=== PATIENT | female | born 1990 | race African-American/Black ===

== ENCOUNTER 2020-03-16 12:00 | Inpatient (IN) | payer BC, SELFPAY ==
[2020-03-16] MEDS ORDERED: Misoprostol 200 MCG TAB PR PRN (12:24)
[2020-03-16] MEDS ORDERED: Ibuprofen 800 MG TAB PO PRN (12:24)
[2020-03-16] MEDS ORDERED: Methylergonovine 0.2 MG/ML VIAL IM PRN (12:24)
[2020-03-16] MEDS ORDERED: HYDROcodone/Acetaminophen 5/325 mg Tablet PO PRN ×2 (12:24)
[2020-03-16] MEDS ORDERED: NS / Oxytocin 40 units/1000ml 1,000 ML IV PRN (12:24)
[2020-03-16] MEDS ORDERED: hydrALAZINE 20 MG/ML VIAL SLOW IVP PRN (12:24)
[2020-03-16] MEDS ORDERED: Lidocaine 1% (PF) 30 ML VIAL SC PRN (12:24)
[2020-03-16] MEDS ORDERED: Butorphanol Tartrate 1 MG/ML VIAL ONE ×2 (12:25)
[2020-03-16] MEDS ORDERED: Lactated Ringer's 1,000 ML IV SCH ×2 (12:30)
[2020-03-16] MEDS ORDERED: Butorphanol Tartrate 1 MG/ML VIAL SLOW IVP SCH (12:30)
[2020-03-16] MEDS ORDERED: Promethazine HCl 25 MG/ML VIAL IM SCH (12:30)
[2020-03-16] MEDS ORDERED: Promethazine HCl 25 MG/ML VIAL ONE (12:34)
[2020-03-16] MEDS ORDERED: Morphine 4 MG/ML VIAL ONE (12:45)
[2020-03-16] MEDS ORDERED: Morphine 2 MG/ML VIAL SLOW IVP PRN (12:48)
[2020-03-16] MEDS ORDERED: Misoprostol 200 MCG TAB ONE (13:18)
[2020-03-16 14:14] VITALS: BMI 33.1
[2020-03-16 14:45] VITALS: BP 117/66; TEMP 98.7
[2020-03-16 15:03] LABS: Hemoglobin 11.9 g/dL (12.0-16.0); Mean Corpuscular HGB CONC 33.1 g/dL (32.0-36.0); Mean Corpuscular Hemoglobin 28.6 pg (27.0-31.0); Mean Corpuscular Volume 86.4 fL (78.0-98.0); Mean Platelet Volume 7.8 fL (7.4-10.4); Platelet Count 277 thou/uL (130-400); RBC Distribution Width 12.9 % (11.5-14.5); Red Blood Cell (RBC) Count 4.16 mill/uL (4.20-5.40); White Blood Cell (WBC) Count 15.4 thou/uL (4.8-10.8)
[2020-03-16 15:41] LABS: HBSAg Index 0.25 S/CO (0-0.99); HIV (1/2) Antibody/Antigen Non-Reactive (NonReactive); HIV 1/2 INDEX 0.12 S/CO (<1.00); Hep B Surf Ag Non-Reactive S/CO (NonReactive); Syphilis Antibody Nonreactive (Nonreactive); Syphilis Antibody Index 0.04 S/CO (<1.00 Non-Reactive)
--- NOTE | 2020-03-16 17:45 | DN ---
DATE OF PROCEDURE: 03/16/2020 The patient delivered a nonviable male on 03/16/2020 at 12:56 p.m., gestational age of 22 weeks and a day. Apgars were 2 and 1. Weight of 500 g. Placenta delivered spontaneously. ESTIMATED BLOOD LOSS: 150 mL. LACERATIONS: None. DELIVERING PHYSICIAN: Spike Ames MD COUNTS: Correct. COMPLICATIONS: None. Living has handed to the mother, swaddled for comfort care. Mother is stable. Time of is 1:20 p.m. Job ID: [id number]
--- NOTE | 2020-03-17 08:15 | DIS ---
DATE OF ADMISSION: 03/16/2020 DATE OF DISCHARGE: 03/16/2020 ADMITTING DIAGNOSES: 1. Previable rupture of membranes at 22 weeks. 2. labor. 3. Cord prolapse. 4. Malpresentation. DISCHARGE DIAGNOSES: 1. Previable rupture of membranes at 22 weeks. 2. labor. 3. Cord prolapse. 4. Malpresentation. 5. Previable delivery. HOSPITAL COURSE: The patient was admitted with concerns of imminent delivery. She delivered a nonviable living at 22 weeks gestation, which subsequently . For complete details, please refer to the dictated notes. The patient was here for about 6 hours and remained otherwise vital and healthy and requested discharge home. Vital signs at time of discharge, blood pressure is 127/59, heart rate of 97, respiratory rate of 18, temperature 98.0. Bleeding had reduced significantly. The patient was without discomfort and was comfortable discharging home. She has instructions to follow up with her primary OB, Dr. Christie, in [place] by notifying him the following day with an update. She was discharged home with ibuprofen 800 mg p.o. q.8 hours p.r.n. for pain and the patient's request, Micronor, to be taken daily as directed. Job ID: [id number]
[2020-03-17] MEDS ORDERED: FLU VACC QS2020-21(6MOS UP)/PF 60 MCG/0.5 ML SYRINGE IM ONE (09:00)
== END 2020-03-16 20:45 | disposition home or self-care (01) | DRG 805 ==
LOC: L&D/OP 12:00 → L&D 13:42
PROVIDERS: ADMIT Obstetrics & Gynecology; ATTEND Obstetrics & Gynecology
PROC: 10E0XZZ Delivery of Products of Conception, External Approach (ICD-10-PCS; principal; 2020-03-16)
DX: O36.4XX0 Maternal care for intrauterine death, not applicable or unspecified (principal); O60.12X0 Preterm labor second trimester with preterm delivery second trimester, not applicable or unspecified; Z37.1 Single stillbirth; O42.912 Preterm premature rupture of membranes, unspecified as to length of time between rupture and onset of labor, second trimester; O69.0XX0 Labor and delivery complicated by prolapse of cord, not applicable or unspecified; O32.9XX0 Maternal care for malpresentation of fetus, unspecified, not applicable or unspecified; Z3A.22 22 weeks gestation of pregnancy
CPT/HCPCS: 36415; 85027; 86780; 86850; 86900; 86901; 87340; 87389; 99285; J0595; J2270; J2550

== ENCOUNTER 2022-09-10 17:08 | Outpatient (CLI) | payer BC, OTHER ==
[2022-09-10 18:06] LABS: BHCG - Serum Negative (NEGATIVE); Hemoglobin 11.8 g/dL (12.0-15.5); MDiff Complete? YES; Mean Corpuscular HGB CONC 31.8 g/dL (32.0-36.0); Mean Corpuscular Hemoglobin 26.6 pg (27.0-33.0); Mean Corpuscular Volume 83.6 fl (81.6-98.3); Mean Platelet Volume 10.1 fl (7.4-10.4); Platelet Count 430 10x3/uL (150-450); Pregs Control Background? CLEAR/WHITE (CLR/WHITE); Pregs Control Bar Appear? YES (CONTROL BAR); RBC Distribution Width 13.6 % (11.5-14.5); Red Blood Cell (RBC) Count 4.44 10x6/uL (3.90-5.03); White Blood Cell (WBC) Count 7.3 10x3/uL (3.5-10.5)
[2022-09-10 18:08] LABS: Anion Gap 14 mmol/L (10-20); BUN (Urea Nitrogen) 10 mg/dL (7.0-18.7); Calc. Creatinine Clearance 0 mL/min (70-130); Calcium 9.2 mg/dL (7.8-10.44); Carbon Dioxide 23 mmol/L (22-29); Chloride 105 mmol/L (98-107); Estimated GFR 91; Glucose 113 mg/dL (70-105); Potassium 3.8 mmol/L (3.5-5.1); Sodium 138 mmol/L (136-145)
[2022-09-10 18:57] LABS: Eosinophils 6 % (0-10); Lymphocytes 51 % (21-51); Monocytes 5 % (0-10); Neutrophil 37 % (42-75)
[2022-09-10 18:58] LABS: Platelet Adequacy Comment Appears Increased; RBC Morph Comment Within Normal Limits
== END 2022-09-10 17:09 | disposition home or self-care (01) ==
LOC: LABBT 17:08
PROVIDERS: ATTEND Surgery
DX: Z01.818 Encounter for other preprocedural examination (principal); K43.9 Ventral hernia without obstruction or gangrene
CPT/HCPCS: 80048; 84703; 85025; 93005; 93010